=== PATIENT | male | born 1990 | race African-American/Black ===

== ENCOUNTER 2021-10-10 10:33 | Emergency (ER) | payer OTHER ==
[~2021-10-10] VITALS: Ht 180.3 cm; Wt 76.0 kg
[2021-10-10 10:37] VITALS: BP 112/78
[2021-10-10] MEDS ORDERED: CEFTRIAXONE SODIUM 500 MG/VIAL IM ONE (11:00)
[2021-10-10] MEDS ORDERED: LIDOCAINE HCL 1% 20ML VIAL (Pyxis) INJ INFIL ONE (11:00)
[2021-10-10] MEDS ORDERED: DOXYCYCLINE HYCLATE 100MG CAPSULE PO ONE (11:00)
[2021-10-10] MEDS ORDERED: LIDOCAINE HCL/PF 1% 2ML VIAL INFIL NR (11:45)
[2021-10-10] MEDS ORDERED: DOXY100C5 MT (12:17)
[2021-10-10 14:00] LABS: HEPATITIS B SURFACE ANTIGEN NEGATIVE
[2021-10-11 08:08] LABS: HIV SCREEN 4G Non Reactive (Non Reactive)
== END 2021-10-10 12:54 | disposition home or self-care (01) ==
LOC: ER 10:33
DX: N34.2 Other urethritis (principal); M25.561 Pain in right knee
CPT/HCPCS: 36415; 73562; 86592; 86705; 86709; 86803; 87340; 87389; 96372; 99284; J0696; J3490

== ENCOUNTER 2023-01-02 00:07 | Emergency (ER) | payer MEDICAID, OTHER ==
[~2023-01-02] VITALS: Ht 177.8 cm; Wt 75.0 kg
[~2023-01-02 00:07] MED LIST: DOXY100C5 MT
[2023-01-02 00:26] VITALS: BP 122/76; O2SAT 100
[2023-01-02 00:27] VITALS: PULSE 72; RESP 15; TEMP 98
[2023-01-02] MEDS ORDERED: MORPHINE SULFATE 10 MG/ML CPJ IM ONE (01:15)
[2023-01-02] MEDS ORDERED: T3 PO (02:00)
== END 2023-01-02 02:55 | disposition home or self-care (01) ==
LOC: ER 00:07
DX: S82.891A Other fracture of right lower leg, initial encounter for closed fracture (principal); M97.21XA Periprosthetic fracture around internal prosthetic right ankle joint, initial encounter; W18.30XA Fall on same level, unspecified, initial encounter; Y93.02 Activity, running; Y92.89 Other specified places as the place of occurrence of the external cause; Y99.8 Other external cause status
CPT/HCPCS: 99284; 29515; 73610; 73630; 96372; J2270

== ENCOUNTER 2023-01-10 19:49 | Emergency (ER) | payer MEDICAID ==
[~2023-01-10] VITALS: Ht 177.8 cm; Wt 78.0 kg
[~2023-01-10 19:49] MED LIST changes: +T3 PO
[2023-01-10 20:11] VITALS: BP 112/37; PULSE 85; RESP 16; TEMP 98; O2SAT 98
== END 2023-01-10 22:02 | disposition home or self-care (01) ==
LOC: ER 19:57
DX: S82.891A Other fracture of right lower leg, initial encounter for closed fracture (principal); M97.21XA Periprosthetic fracture around internal prosthetic right ankle joint, initial encounter; X58.XXXA Exposure to other specified factors, initial encounter; Y93.9 Activity, unspecified; Y92.89 Other specified places as the place of occurrence of the external cause; Y99.8 Other external cause status
CPT/HCPCS: 29515; 99283; Z7610

== ENCOUNTER 2023-04-11 00:18 | Emergency (ER) | payer MEDICAID ==
[~2023-04-11] VITALS: Ht 180.3 cm; Wt 77.0 kg
[2023-04-11 00:26] VITALS: O2SAT 99
[2023-04-11] MEDS ORDERED: LIDOCAINE HCL 1% 20ML VIAL (Pyxis) INJ INFIL ONE (01:45)
[2023-04-11] MEDS ORDERED: DOXY100T2 MT (01:54)
[2023-04-11] MEDS: CEFTRIAXONE SODIUM 500MG VIAL IM ONE (02:02)
[2023-04-11] MEDS: LIDOCAINE HCL 1% 20ML VIAL (Pyxis) INJ INFIL NR (02:02)
[2023-04-11 02:22] VITALS: BP 117/76; PULSE 72; RESP 16; TEMP 98.4
[2023-04-15 04:07] LABS: CHLAMYDIA TRACHOMATIS NAA Negative (Negative); NEISSERIA GONORRHOEAE NAA Negative (Negative)
== END 2023-04-11 02:26 | disposition home or self-care (01) ==
LOC: ER 00:18
DX: Z11.3 Encounter for screening for infections with a predominantly sexual mode of transmission (principal)
CPT/HCPCS: 99283; 86592; 87491; 87591; 36415; 96372; J0696; J3490

== ENCOUNTER 2023-10-02 03:04 | Emergency (ER) | payer MEDICAID, OTHER ==
[~2023-10-02] VITALS: Ht 180.3 cm; Wt 73.1 kg
[~2023-10-02 03:04] MED LIST changes: +DOXY100T2 MT
[2023-10-02 03:13] VITALS: O2SAT 99
[2023-10-02] MEDS: CEPHALEXIN 250MG CAPSULE PO STA (05:59)
[2023-10-02] MEDS: SULFAMETHOXAZOLE/TRIMETHOPRIM 800/160MG TABLET PO ONE (06:00)
[2023-10-02] MEDS: IBUPROFEN 800MG TABLET PO ONE (06:00)
[2023-10-02] MEDS ORDERED: SULF1TAB48 MT (06:03)
[2023-10-02] MEDS ORDERED: CEPH500T MT (06:03)
[2023-10-02] MEDS ORDERED: NAP5EC MT (06:03)
[2023-10-02 06:13] VITALS: BP 124/76; PULSE 78; RESP 16; TEMP 98
== END 2023-10-02 06:12 | disposition home or self-care (01) ==
LOC: ER 03:04
DX: L02.412 Cutaneous abscess of left axilla (principal)
CPT/HCPCS: 99284